=== PATIENT | female | born 1995 | race Hispanic/Latino ===

== ENCOUNTER 2018-03-05 14:00 | Inpatient (IN) | payer MEDICAID, OTHER ==
[~2018-03-05] VITALS: Ht 157.5 cm; Wt 73.0 kg
[2018-03-05] MEDS ORDERED: LACTATED RINGERS 1000ML 1,000 ML IV PRN (14:23)
[2018-03-05] MEDS ORDERED: AMPICILLIN 2GM+NS 100ML 100 ML IV SCH (14:30)
[2018-03-05 14:53] LABS: HEMATOCRIT 41.7 % (36-48); MEAN CORPUSCULAR HEMOGLOBIN 31.1 pg (27.0-33.0); MEAN CORPUSCULAR HGB CONC 34.2 g/dL (32.0-36.0); MEAN CORPUSCULAR VOLUME 90.8 fL (79-99); PLATELET COUNT (AUTO) 281 K/uL (130-400); RED BLOOD CELL COUNT(AUTO) 4.59 MIL/uL (4.00-5.50); RED CELL DISTRIBUTION WIDTH 13.1 % (11.0-15.5); WHITE BLOOD COUNT (AUTO) 9.4 K/uL (4.8-10.8)
[2018-03-05 14:54] LABS: APPEARANCE,URINE Clear (CLEAR); BILIRUBIN,URINE Negative (NEGATIVE); COLOR,URINE Yellow (YELLOW); GLUCOSE, URINE (UA) Negative (NEGATIVE); KETONES,URINE Negative (NEGATIVE); LEUKOCYTE ESTERASE ,URINE Negative (NEGATIVE); NITRATE,URINE Negative (NEGATIVE); OCCULT BLOOD,URINE Trace (NEGATIVE); PROTEIN,URINE Negative (NEGATIVE)
[2018-03-05 15:06] LABS: RBC,URINE 0-1 /HPF (0-1); WBC,URINE 0-1 /HPF (0-1)
[2018-03-05 15:07] LABS: BACTERIA,URINE Rare /HPF (None Seen); MUCUS,URINE Rare LPF (None Seen); SQUAMOUS EPITHELIAL CELL,UR Few /HPF (0-2)
[2018-03-05] MEDS: AMPICILLIN 1GM+NS 50ML 50 ML IV SCH ×2 (20:03→23:55)
[2018-03-06] MEDS ORDERED: ACETAMINOPHEN EXTRA STRENGTH 500 MG TABLET PO ONE (00:30)
[2018-03-06] MEDS ORDERED: OXYTOCIN 10 USP UNITS/ML 20 UNIT in LACTATED RINGERS 1000ML 1,000 ML IV SCH ×2 (03:00→05:00)
[2018-03-06] MEDS ORDERED: AMPICILLIN 2GM+NS 100ML 100 ML IV ONE (04:14)
[2018-03-06] MEDS ORDERED: LACTATED RINGERS 1000ML 1,000 ML IV ONE ×2 (04:44→12:47)
[2018-03-06] MEDS ORDERED: OXYTOCIN 10 USP UNITS/ML ONE ×3 (04:47→19:19)
[2018-03-06 07:30] LABS: HEPATITIS Bs ANTIGEN SCREEN P Negative (Negative)
[2018-03-06] MEDS ORDERED: PROMETHAZINE HCL 25 MG/ML 1ML AMPULE IM SCH (08:00)
[2018-03-06] MEDS ORDERED: MEPERIDINE-PF 50 MG/ML SYG IVP SCH (08:00)
[2018-03-06] MEDS: AMPICILLIN 1GM+NS 50ML 50 ML IV SCH (08:16)
[2018-03-06] MEDS ORDERED: LIDOCAINE HCL MPF 1% 5ML VIAL ONE (11:33)
[2018-03-06] MEDS ORDERED: MEASLES/MUMPS/RUBELLA VACCINE, LIVE 0.5 ML/VIAL SQ PRN (13:00)
[2018-03-06] MEDS ORDERED: DIPH,PERTUSS(ACELL),TET VAC/PF 0.5 ML VIAL IM PRN (13:00)
[2018-03-06] MEDS ORDERED: ACETAMINOPHEN 325 MG TAB PO PRN (13:00)
[2018-03-06] MEDS ORDERED: OXYTOCIN-LR 20 UNITS/1000 ML 1,000 ML IV SCH (13:00)
[2018-03-06] MEDS ORDERED: WITCH HAZEL 1 PAD TP PRN (13:00)
[2018-03-06] MEDS ORDERED: LANOLIN 30GM OINTMENT TP PRN (13:00)
[2018-03-06] MEDS ORDERED: BENZOCAINE/LANOLIN/ALOE VERA 60 ML AEROSOL TP PRN (13:00)
[2018-03-06 13:21] VITALS: BP 109/74
[2018-03-06] MEDS ORDERED: PREN-154 PO (13:28)
[2018-03-06] MEDS: IBUPROFEN 600 MG TABLET PO PRN ×2 (13:47→21:03)
[2018-03-06 15:40] VITALS: BP 112/66
[2018-03-06 19:00] VITALS: BP 112/68
[2018-03-06] MEDS: DOCUSATE SODIUM 100 MG CAP PO SCH (21:02)
[2018-03-06 23:00] VITALS: BP 108/80
[2018-03-07 04:00] VITALS: BP 129/68
[2018-03-07 05:51] LABS: HEMATOCRIT 37.1 % (36-48); MEAN CORPUSCULAR HEMOGLOBIN 30.9 pg (27.0-33.0); MEAN CORPUSCULAR HGB CONC 33.4 g/dL (32.0-36.0); MEAN CORPUSCULAR VOLUME 92.4 fL (79-99); NUCLEATED RED BLOOD CELLS 0.4 % (0.0-0.19); PLATELET COUNT (AUTO) 227 K/uL (130-400); RED BLOOD CELL COUNT(AUTO) 4.02 MIL/uL (4.00-5.50); WHITE BLOOD COUNT (AUTO) 14.9 K/uL (4.8-10.8)
[2018-03-07 07:59] VITALS: BP 111/65
[2018-03-07] MEDS: DOCUSATE SODIUM 100 MG CAP PO SCH (08:47)
[2018-03-07] MEDS: IBUPROFEN 600 MG TABLET PO PRN (08:48)
[2018-03-07 11:45] VITALS: BP 109/69
== END 2018-03-07 15:30 | disposition home or self-care (01) | DRG 560 ==
LOC: LDH 14:00 → WSH 03-06 13:15
PROVIDERS: ADMIT Obstetrics & Gynecology; ATTEND Obstetrics & Gynecology
PROC: 10E0XZZ Delivery of Products of Conception, External Approach (ICD-10-PCS; principal; 2018-03-06)
PROC: 10907ZC Drainage of Amniotic Fluid, Therapeutic from Products of Conception, Via Natural or Artificial Opening (ICD-10-PCS; 2018-03-06)
PROC: 0W8NXZZ Division of Female Perineum, External Approach (ICD-10-PCS; 2018-03-06)
PROC: 3E0234Z Introduction of Serum, Toxoid and Vaccine into Muscle, Percutaneous Approach (ICD-10-PCS; 2018-03-06)
DX: O99.824 Streptococcus B carrier state complicating childbirth (principal); O69.1XX0 Labor and delivery complicated by cord around neck, with compression, not applicable or unspecified; Z37.0 Single live birth; Z3A.39 39 weeks gestation of pregnancy; Z23 Encounter for immunization
CPT/HCPCS: 36415; 81001; 85027; 86592; 86850; 86900; 86901; 87340; 90715; A4351; J0290; J2175; J2550; J2590; J3490; J7120; Q2038